=== PATIENT | male | born 1995 | race Caucasian/White ===

== ENCOUNTER 2024-10-11 01:05 | Emergency (ER) | payer OTHER ==
[~2024-10-11] VITALS: Ht 177.8 cm; Wt 77.0 kg
[2024-10-11] MEDS ORDERED: KETOROLAC TROMETHAMINE 30 MG/ML SDV IM ONE (02:15)
[2024-10-11] MEDS ORDERED: DEXAMETHASONE SOD. PHOSPHATE 10 MG/ML VIAL IM ONE (02:15)
[2024-10-11] MEDS ORDERED: Acetaminophen 300 MG/Codeine 30 MG/COMBO PO ONE (02:15)
[2024-10-11] MEDS ORDERED: TRAMADOL HYDROC50 M1 PO (02:19)
[2024-10-11] MEDS ORDERED: STERAPRED DS10 MG PO (02:19)
[2024-10-11 02:30] VITALS: BP 120/75
== END 2024-10-11 02:47 | disposition home or self-care (01) ==
LOC: ED 01:05
DX: M54.42 Lumbago with sciatica, left side (principal)